=== PATIENT | female | born 1980 | race Caucasian/White ===

== ENCOUNTER 2019-04-27 08:27 | Outpatient (CLI) | payer BC ==
--- NOTE | 2019-04-27 09:07 | MMO ---
Right Breast MAMMO Unilat Diag DDI RT+DUSTIN. CLINICAL HISTORY: Patient is 39 years old and is seen for additional evaluation requested at current screening. The patient has no family history of breast cancer. The patient has no personal history of cancer. VIEWS: The views performed were: right craniocaudal spot compression with tomosynthesis; right mediolateral oblique spot compression with tomosynthesis; and right mediolateral with tomosynthesis. FILMS COMPARED: The present examination has been compared to prior imaging studies performed at [facility] on 04/18/2019, and at [facility] on 04/27/2019. This study has been interpreted with the assistance of computer-aided detection. MAMMOGRAM FINDINGS: There are scattered fibroglandular densities. There is an equal density, oval mass measuring 10 millimeters with circumscribed margins seen in the right breast at 11 o'clock. Sonography of this region demonstrates a probable aggregation of small cysts in this region that likely corresponds to the mammogram abnormality. IMPRESSION: MASS IN THE RIGHT BREAST IS PROBABLY BENIGN. FOLLOW-UP IN 6 MONTHS IS RECOMMENDED. THE RESULTS OF THIS EXAM WERE SENT TO THE PATIENT. ACR BI-RADS Category 3 - Probably benign finding - short interval follow-up suggested. [facility] will notify the patient of the need for additional imaging services. MAMMOGRAPHY NOTE: 1. A negative mammogram report should not delay a biopsy if a dominant of clinically suspicious mass is present. 2. Approximately 10% to 15% of breast cancers are not detected by mammography. 3. Adenosis and dense breasts may obscure an underlying neoplasm. Reported by: BEAU ELDER MD Electonically Signed: [id number]
--- NOTE | 2019-04-27 09:45 | ULT ---
LIMITED RIGHT BREAST ULTRASOUND: DATE: 04/27/2019. PROVIDED CLINICAL HISTORY: Abnormal mammogram. FINDINGS: Limited sonographic interrogation of the right breast in the region of mammographic concern demonstra wilder an approximately 6 mm circumscribed focus of heterogeneous echogenicity suggesting an aggregation of small cysts with intervening breast parenchyma. No shadowing or other concerning findings are ev ident. IMPRESSION: BIRADS category 3 - probably benign. Six-month followup mammogram and ultrasound recommended. POS: OFF
== END 2019-04-27 08:28 | disposition home or self-care (01) ==
LOC: BICMAMMO 08:27
PROVIDERS: ATTEND Obstetrics & Gynecology
DX: N63.10 Unspecified lump in the right breast, unspecified quadrant (principal)
CPT/HCPCS: G0279